=== PATIENT | male | born 1980 | race African-American/Black ===

== ENCOUNTER 2021-03-11 10:08 | Outpatient (CLI) | payer OTHER | END 2021-03-11 10:09 | disposition home or self-care (01) | LOC: BICMAMMO 10:08 | PROVIDERS: ATTEND Family Medicine | DX: N63.11 Unspecified lump in the right breast, upper outer quadrant (principal) | CPT/HCPCS: 77066; G0279 ==

== ENCOUNTER 2021-04-23 15:51 | Outpatient (CLI) | payer OTHER | END 2021-04-23 15:52 | disposition home or self-care (01) | LOC: BICRAD 15:51 | PROVIDERS: ATTEND Student in an Organized Health Care Education/Training Program | DX: M25.511 Pain in right shoulder (principal); M19.011 Primary osteoarthritis, right shoulder ==

== ENCOUNTER 2021-05-25 19:30 | Outpatient (CLI) | payer OTHER | END 2021-05-25 19:31 | disposition home or self-care (01) | LOC: SLEEPLAB 19:30 | PROVIDERS: ATTEND Student in an Organized Health Care Education/Training Program | DX: G47.33 Obstructive sleep apnea (adult) (pediatric) (principal); R53.83 Other fatigue; R06.83 Snoring; I10 Essential (primary) hypertension; G47.00 Insomnia, unspecified; G47.10 Hypersomnia, unspecified; E66.9 Obesity, unspecified; Z68.45 Body mass index [BMI] 70 or greater, adult | CPT/HCPCS: 95811 ==